=== PATIENT | female | born 1940 | race African-American/Black ===

== ENCOUNTER 2016-03-23 06:01 | Emergency (ER) | payer MEDICARE, OTHER ==
[~2016-03-23] VITALS: Ht 154.9 cm; Wt 76.2 kg
[~2016-03-23 06:01] MED LIST: AMBIEN10 M1 PO; AMBIEN5 MG PO; AMITRIPTYLINE H50 MG PO; CLARITIN10 MG PO; CLONIDINE0.1 MG PO; FELODIPINE ER2.5 MG PO; FERROUS SULFAT150 MG PO; FLUTICASON0.05 MG/A2 NAS; LISINOPRIL40 MG PO; METFORMIN500 MG PO; NEURONTIN100 MG PO; NEURONTIN600 MG PO; OMEPRAZOLE20 MG PO; PERCOCET 325 MG1 TA2 PO; PERCOCET 325 MG1 TA5 PO; PRESERVISION AR1 SGL PO; PRILOSEC20 M2 PO; PROVENTIL0.09 MG/A1 INH; PROVENTIL0.09 MG/AC INH; SOMA350 MG PO; SYNTHROID,LEVOTHROID PO; SYNTHROID0.175 MG PO; WARFARIN SOD5 MG PO; XALATAN 0.005%2.5 ML INTRAOC; XANAX XR0.5 MG PO; XANAX0.5 MG PO; ZOLOFT50 MG PO
[2016-03-23] MEDS ORDERED: NEURONTIN800 MG PO (06:18)
[2016-03-23] MEDS ORDERED: LASIX20 MG PO (06:24)
[2016-03-23] MEDS ORDERED: GUAIFENESIN PO (06:26)
[2016-03-23] MEDS ORDERED: CODEINE PO (06:26)
[2016-03-23] MEDS ORDERED: HIGH POTENCY I134 MG PO (06:27)
[2016-03-23] MEDS ORDERED: ZOLOFT100 MG PO (06:27)
[2016-03-23] MEDS ORDERED: COUMADIN1 M1 PO (06:28)
[2016-03-23 06:41] LABS: BASO % 0.3 % (0.0-1.0); EOS % 0.3 % (1.0-4.0); HEMATOCRIT 44.7 % (37.0-47.0); HEMOGLOBIN 13.9 g/dl (12.0-16.0); LYMPH # 1.9 10*3/uL (1.3-4.4); LYMPH % 25.1 % (27.0-41.0); MEAN CELL VOLUME 79.7 fl (81.0-99.0); MEAN CORPUSCULAR HGB 24.8 pg (27.0-31.0); MEAN CORPUSCULAR HGB CONC 31.1 g/dl (33.0-37.0); MEAN PLATELET VOLUME 11.3 fl (9.6-12.3); MONO # 0.8 10*3/uL (0.1-1.0); MONO % 10.5 % (3.0-9.0); NEUT # 4.9 10*3/uL (2.3-7.9); NEUT % 63.7 % (47.0-73.0); PLATELET COUNT AUTOMATED 211 10*3/uL (130-400); RED BLOOD COUNT 5.61 10*6/uL (4.10-5.10); RED CELL DISTRI WIDTH 16.1 % (0-14.5); WHITE BLOOD COUNT 7.7 10*3/uL (4.8-10.8)
[2016-03-23 06:48] LABS: INTERNATIONAL NORM RATIO 2.5 (2.0-3.5); PROTHROMBIN TIME 26.8 SECONDS (9.0-12.4)
[2016-03-23 06:57] LABS: ALBUMIN 3.2 gm/dl (3.1-4.5); ALKALINE PHOSPHATASE 89 U/L (45-117); BILIRUBIN, TOTAL 0.3 mg/dl (0.2-1.0); BUN 7 mg/dl (7-24); C-REACTIVE PROTEIN 5.55 MG/DL (0-0.3); CARBON DIOXIDE 26 mmol/L (21-32); CHLORIDE 109 mmol/L (98-107); EST GLOM FILT AFRICAN AMERICAN > 60 ml/min; GLUCOSE 133 mg/dL (65-99); MAGNESIUM 1.4 mg/dL (1.5-2.1); POTASSIUM 3.3 mmol/L (3.5-5.1); SGOT/AST 11 IU/L (3-35); SGPT/ALT 13 U/L (12-78); SODIUM 144 mmol/L (136-145); TOTAL PROTEIN 6.8 gm/dL (6.4-8.2)
[2016-03-23 06:59] LABS: TROPONIN I < 0.015 ng/ml (<0.5)
[2016-03-23] MEDS ORDERED: COUMADIN5 M2 PO (07:11)
[2016-04-21] MEDS ORDERED: ATIVAN1 MG PO (16:10)
== END 2016-03-23 09:49 | disposition home or self-care (01) ==
LOC: ED 06:01
PROVIDERS: Emergency Medicine Emergency Medical Services
DX: M54.5 Low back pain (principal); R19.7 Diarrhea, unspecified; R63.0 Anorexia; R63.4 Abnormal weight loss; Z79.01 Long term (current) use of anticoagulants; Z88.0 Allergy status to penicillin; Z79.899 Other long term (current) drug therapy

== ENCOUNTER → 2016-04-01 | Outpatient (CLI) | payer MEDICARE, OTHER ==
[~2016-04-01] MED LIST changes: +ATIVAN1 MG PO; +CODEINE PO; +COUMADIN1 M1 PO; +COUMADIN5 M2 PO; +GUAIFENESIN PO; +HIGH POTENCY I134 MG PO; +LASIX20 MG PO; +NEURONTIN800 MG PO; +ZOLOFT100 MG PO
[2016-04-01 08:04] LABS: BASO % 0.4 % (0.0-1.0); EOS # 0.1 10*3/uL (0.0-0.4); EOS % 1.1 % (1.0-4.0); HEMATOCRIT 44.9 % (37.0-47.0); HEMOGLOBIN 14.1 g/dl (12.0-16.0); LYMPH # 2.5 10*3/uL (1.3-4.4); LYMPH % 34.2 % (27.0-41.0); MEAN CELL VOLUME 79.8 fl (81.0-99.0); MEAN CORPUSCULAR HGB CONC 31.4 g/dl (33.0-37.0); MEAN PLATELET VOLUME 11.2 fl (9.6-12.3); MONO # 0.7 10*3/uL (0.1-1.0); MONO % 9.4 % (3.0-9.0); NEUT # 3.9 10*3/uL (2.3-7.9); NEUT % 54.6 % (47.0-73.0); PLATELET COUNT AUTOMATED 357 10*3/uL (130-400); RED BLOOD COUNT 5.63 10*6/uL (4.10-5.10); RED CELL DISTRI WIDTH 15.4 % (0-14.5); WHITE BLOOD COUNT 7.2 10*3/uL (4.8-10.8)
[2016-04-01 08:32] LABS: ALBUMIN 3.3 gm/dl (3.1-4.5); ALKALINE PHOSPHATASE 87 U/L (45-117); BILIRUBIN, TOTAL 0.2 mg/dl (0.2-1.0); BUN 10 mg/dl (7-24); CARBON DIOXIDE 26 mmol/L (21-32); CHLORIDE 107 mmol/L (98-107); CHOLESTEROL 184 mg/dL (<200); EST GLOM FILT AFRICAN AMERICAN > 60 ml/min; FREE T4 1.38 ng/dl (0.76-1.46); GLUCOSE 117 mg/dL (65-99); HDL CHOLESTEROL 55 mg/dl (40-60); LDL CHOLESTEROL 97 mg/dL (9-159); POTASSIUM 3.6 mmol/L (3.5-5.1); SGOT/AST 12 IU/L (3-35); SGPT/ALT 20 U/L (12-78); SODIUM 144 mmol/L (136-145); TOTAL PROTEIN 7.2 gm/dL (6.4-8.2); TRIGLYCERIDES 159 mg/dl (<150); VLDL CHOLESTEROL 32 mg/dL (6-40)
== END | disposition home or self-care (01) ==
LOC: LAB 07:02
PROVIDERS: Internal Medicine
DX: I10 Essential (primary) hypertension (principal); E03.9 Hypothyroidism, unspecified; I48.91 Unspecified atrial fibrillation

== ENCOUNTER 2016-08-10 06:46 | Inpatient (IN) | payer MEDICARE, OTHER ==
[2016-08-09 20:00] VITALS: BP 159/59
[~2016-08-10] VITALS: Ht 154.9 cm; Wt 66.3 kg
[2016-08-10 06:46] VITALS: BP 67/43
[2016-08-10 07:31] VITALS: BP 122/60
[2016-08-10 07:49] LABS: BASO % 0.4 % (0.0-1.0); EOS % 0.4 % (1.0-4.0); HEMATOCRIT 43.4 % (37.0-47.0); HEMOGLOBIN 13.3 g/dl (12.0-16.0); LYMPH # 1.4 10*3/uL (1.3-4.4); LYMPH % 20.3 % (27.0-41.0); MEAN CELL VOLUME 81.4 fl (81.0-99.0); MEAN CORPUSCULAR HGB CONC 30.6 g/dl (33.0-37.0); MEAN PLATELET VOLUME 10.9 fl (9.6-12.3); MONO # 0.5 10*3/uL (0.1-1.0); MONO % 7.8 % (3.0-9.0); NEUT # 4.7 10*3/uL (2.3-7.9); NEUT % 70.7 % (47.0-73.0); PLATELET COUNT AUTOMATED 253 10*3/uL (130-400); RED BLOOD COUNT 5.33 10*6/uL (4.10-5.10); RED CELL DISTRI WIDTH 14.6 % (0-14.5); WHITE BLOOD COUNT 6.7 10*3/uL (4.8-10.8)
[2016-08-10 08:04] LABS: ALBUMIN 3.2 gm/dl (3.1-4.5); ALKALINE PHOSPHATASE 87 U/L (45-117); BILIRUBIN, TOTAL 0.3 mg/dl (0.2-1.0); BUN 11 mg/dl (7-24); C-REACTIVE PROTEIN 1.85 MG/DL (0-0.3); CARBON DIOXIDE 28 mmol/L (21-32); CHLORIDE 107 mmol/L (98-107); EST GLOM FILT AFRICAN AMERICAN > 60 ml/min; GLUCOSE 155 mg/dL (65-99); MAGNESIUM 1.6 mg/dL (1.5-2.1); POTASSIUM 3.5 mmol/L (3.5-5.1); SGOT/AST 12 IU/L (3-35); SGPT/ALT 14 U/L (12-78); SODIUM 143 mmol/L (136-145); TOTAL PROTEIN 6.5 gm/dL (6.4-8.2); URIC ACID 4.9 mg/dL (2.6-6.0)
[2016-08-10 09:46] VITALS: BP 105/51
[2016-08-10 09:52] VITALS: BP 148/76
[2016-08-10 12:00] VITALS: BP 158/71
[2016-08-10] MEDS ORDERED: CLARITIN10 MG PO (12:51)
[2016-08-10] MEDS ORDERED: FLUTICASON0.05 MG/AC NAS (12:53)
[2016-08-10 16:00] VITALS: BP 159/59
[2016-08-10] MEDS ORDERED: XANAX XR0.5 MG PO (16:22)
[2016-08-10 18:17] LABS: INTERNATIONAL NORM RATIO 2.9 (2.0-3.5); PROTHROMBIN TIME 32.6 SECONDS (9.0-12.4)
[2016-08-11] VITALS: BP 154/62
[2016-08-11 06:51] LABS: BASO % 0.1 % (0.0-1.0); HEMATOCRIT 42.4 % (37.0-47.0); HEMOGLOBIN 13.3 g/dl (12.0-16.0); LYMPH # 1.3 10*3/uL (1.3-4.4); LYMPH % 12.8 % (27.0-41.0); MEAN CELL VOLUME 80.3 fl (81.0-99.0); MEAN CORPUSCULAR HGB 25.2 pg (27.0-31.0); MEAN CORPUSCULAR HGB CONC 31.4 g/dl (33.0-37.0); MEAN PLATELET VOLUME 11.7 fl (9.6-12.3); MONO # 0.6 10*3/uL (0.1-1.0); MONO % 5.5 % (3.0-9.0); NEUT # 8.5 10*3/uL (2.3-7.9); NEUT % 81.3 % (47.0-73.0); PLATELET COUNT AUTOMATED 266 10*3/uL (130-400); RED BLOOD COUNT 5.28 10*6/uL (4.10-5.10); RED CELL DISTRI WIDTH 14.5 % (0-14.5); WHITE BLOOD COUNT 10.4 10*3/uL (4.8-10.8)
[2016-08-11 07:05] LABS: ALBUMIN 2.8 gm/dl (3.1-4.5); ALKALINE PHOSPHATASE 83 U/L (45-117); BILIRUBIN, TOTAL 0.2 mg/dl (0.2-1.0); BUN 11 mg/dl (7-24); CARBON DIOXIDE 27 mmol/L (21-32); CHLORIDE 106 mmol/L (98-107); CHOLESTEROL 210 mg/dL (<200); EST GLOM FILT AFRICAN AMERICAN > 60 ml/min; GLUCOSE 196 mg/dL (65-99); MAGNESIUM 1.8 mg/dL (1.5-2.1); PHOSPHOROUS 3.2 mg/dL (2.5-4.9); POTASSIUM 3.5 mmol/L (3.5-5.1); SGOT/AST 7 IU/L (3-35); SGPT/ALT 14 U/L (12-78); SODIUM 142 mmol/L (136-145); TOTAL PROTEIN 6.3 gm/dL (6.4-8.2); TRIGLYCERIDES 91 mg/dl (<150); VLDL CHOLESTEROL 18 mg/dL (6-40)
[2016-08-11 07:10] LABS: HEMOGLOBIN A1c 7.6 % (4.8-5.6)
[2016-08-11 07:11] LABS: HDL CHOLESTEROL 89 mg/dl (40-60); LDL CHOLESTEROL 103 mg/dL (9-159); THYROID STIM HORMONE (HS) 0.143 uIU/ml (0.358-4.75)
[2016-08-11 07:50] LABS: FOLIC ACID 7.67 ng/mL (>5.38)
[2016-08-11 08:00] VITALS: BP 180/72
[2016-08-11 08:04] LABS: VITAMIN D, 25-HYDROXY 9.3 ng/mL (30-100)
[2016-08-11 12:00] VITALS: BP 148/65
[2016-08-11] MEDS ORDERED: DOXYCYCLINE100 M3 PO (15:26)
[2016-08-11] MEDS ORDERED: AMLODIPINE BESYL5 MG PO (15:26)
[2016-08-11 16:00] VITALS: BP 135/50
== END 2016-08-11 18:55 | disposition home or self-care (01) | DRG 558 ==
LOC: ED 06:46 → EDHOLD 11:22 → 5E 11:22
PROVIDERS: Emergency Medicine; Hospitalist; Orthopaedic Surgery
DX: M65.849 Other synovitis and tenosynovitis, unspecified hand (principal); E03.9 Hypothyroidism, unspecified; F41.9 Anxiety disorder, unspecified; M19.90 Unspecified osteoarthritis, unspecified site; H40.9 Unspecified glaucoma; J32.9 Chronic sinusitis, unspecified; Z87.891 Personal history of nicotine dependence; Z88.0 Allergy status to penicillin; Z79.51 Long term (current) use of inhaled steroids; Z79.899 Other long term (current) drug therapy; Z79.01 Long term (current) use of anticoagulants; Z79.84 Long term (current) use of oral hypoglycemic drugs

== ENCOUNTER → 2017-01-15 | Outpatient (CLI) | payer MEDICARE, OTHER ==
[~2017-01-15] MED LIST changes: +AMLODIPINE BESYL5 MG PO; +DOXYCYCLINE100 M3 PO; +FLUTICASON0.05 MG/AC NAS
== END | disposition home or self-care (01) ==
LOC: RAD 03:15
DX: M17.12 Unilateral primary osteoarthritis, left knee (principal); M11.262 Other chondrocalcinosis, left knee; J43.2 Centrilobular emphysema

== ENCOUNTER → 2017-01-22 | Day surgery (SDC) | payer MEDICARE, OTHER ==
[~2017-01-22] VITALS: Ht 154.9 cm; Wt 65.3 kg
--- NOTE | ~2017-01-22 | O ---
[place], [place] OPERATIVE NOTE NAME: STACI MCMANUS UNIT #: [id number] ROOM: DOCTOR: JENN CHOPRA MD BIRTHDATE: [birth year] DOS: The patient has also solid food dysphagia, weight loss, presenting with difficulty swallowing her pills. ALLERGIES: PENICILLIN. FAMILY HISTORY: Noncontributory. PAST SURGICAL HISTORY: Cholecystectomy, rotator cuff, bladder repair. PAST MEDICAL HISTORY: Hypertension, diabetes, hypothyroidism, factor V deficiency. SOCIAL HISTORY: Smoker, nonalcohol consumer. PROCEDURE: Todays' procedure part of investigation is panendoscopy plus biopsy plus balloon dilation of esophagus. PREMEDICATION: Versed and Diprivan. SCOPE: Olympus forward-viewing gastroscope Q10 video. REPORT: After putting the patient in the left lateral position and after application of lubricant to the scope, the scope was introduced. Thereafter, under direct visualization, I advanced through the length of the esophagus without difficulty. Cervical esophageal benign stricture was dilated with a balloon to size 19. At this stage, gastric pouch was inspected, multiple superficial ulcerations in the lesser curvature mid gastric pouch area was noticed. Photographed, biopsied from margin of 1 was obtained. Duodenal bulb, second and third part within normal limits. The patient extubated, tolerated procedure well. IMPRESSION: Multiple superficial gastric ulcers, gastritis, esophageal benign stricture, status post balloon dilation of upper esophagus to size 19. PLAN AND DISCUSSION: Re-assessment clinically in office to see if she has any improvement. Thank you very much indeed. [place], [place] OPERATIVE NOTE NAME: STACI MCMANUS UNIT #: [id number] ROOM: DOCTOR: JENN CHOPRA MD BIRTHDATE: [birth year] JENN CHOPRA MD CM:OPRECORD:OPERATIVE NOTE [id number] JENN CHOPRA MD 01/22/17 1516 interface
[2017-01-22 14:20] VITALS: BP 160/60
[2017-01-22 14:45] VITALS: BP 136/52
[2017-01-22 15:00] VITALS: BP 144/58
[2017-01-22 15:15] VITALS: BP 150/62
== END | disposition home or self-care (01) ==
LOC: SDC 01-18 14:00
DX: K29.50 Unspecified chronic gastritis without bleeding (principal); K25.9 Gastric ulcer, unspecified as acute or chronic, without hemorrhage or perforation; K22.2 Esophageal obstruction; Z88.8 Allergy status to other drugs, medicaments and biological substances; Z90.49 Acquired absence of other specified parts of digestive tract; Z98.890 Other specified postprocedural states; I10 Essential (primary) hypertension; E11.9 Type 2 diabetes mellitus without complications; E03.9 Hypothyroidism, unspecified; F17.210 Nicotine dependence, cigarettes, uncomplicated; J44.9 Chronic obstructive pulmonary disease, unspecified; E11.39 Type 2 diabetes mellitus with other diabetic ophthalmic complication; H40.9 Unspecified glaucoma; F41.9 Anxiety disorder, unspecified; Z83.3 Family history of diabetes mellitus; Z82.49 Family history of ischemic heart disease and other diseases of the circulatory system; Z88.0 Allergy status to penicillin

== ENCOUNTER 2017-02-09 17:49 | Emergency (ER) | payer MEDICARE, OTHER ==
[~2017-02-09] VITALS: Ht 154.9 cm; Wt 68.9 kg
[~2017-02-09 17:49] MED LIST changes: -MEDROL DOSEPAK4 MG PO; -NAPROSYN500 MG PO
[2017-02-09] MEDS ORDERED: MEDROL DOSEPAK4 MG PO (18:29)
[2017-02-09] MEDS ORDERED: NAPROSYN500 MG PO (18:29)
== END 2017-02-09 18:43 | disposition home or self-care (01) ==
LOC: ED 17:49
DX: M19.031 Primary osteoarthritis, right wrist (principal); Z87.891 Personal history of nicotine dependence; Z98.890 Other specified postprocedural states; Z79.899 Other long term (current) drug therapy; Z79.01 Long term (current) use of anticoagulants; Z88.0 Allergy status to penicillin

== ENCOUNTER → 2017-02-09 | Outpatient (CLI) | payer MEDICARE, OTHER ==
[~2017-02-09] MED LIST changes: +MEDROL DOSEPAK4 MG PO; +NAPROSYN500 MG PO
== END | disposition home or self-care (01) ==
LOC: MAMMO 03:45
DX: Z12.31 Encounter for screening mammogram for malignant neoplasm of breast (principal)

== ENCOUNTER → 2017-03-17 | Day surgery (SDC) | payer MEDICARE, OTHER ==
[~2017-03-17] VITALS: Ht 154.9 cm; Wt 65.3 kg
[~2017-03-17] MED LIST changes: +MEDROL DOSEPAK4 MG PO; +NAPROSYN500 MG PO; +SYNTHROID,LEV112 MCG PO
--- NOTE | ~2017-03-17 | O ---
[place], [place] OPERATIVE NOTE NAME: CONCHA MCMANUSTA Gary UNIT #: [id number] ROOM: DOCTOR: JENN CHOPRA MD BIRTHDATE: [birth year] DOS: 03/17/2017 HISTORY OF PRESENT ILLNESS: A 76-year-old patient with chief complaint of change in bowel habit, undergoing investigation. ALLERGIES: PENICILLIN. FAMILY HISTORY: Noncontributory. PAST MEDICAL HISTORY: Hypertension, diabetes, hypothyroidism, and factor V deficiency. On anticoagulant warfarin. PAST SURGICAL HISTORY: Cholecystectomy and rotator cuff and ankle repair. SOCIAL HISTORY: Smoker, 1 pack; nonalcohol consumer. PROCEDURE: Today's procedure part of investigation is colonoscopy with 3 polypectomies with a snare. PREMEDICATION: Versed and Diprivan. SCOPE: Olympus folding colonoscope 10L video. REPORT: After putting the patient in left lateral position and application of lubricant to the scope, the scope was introduced. Thereafter, under direct visualization, advanced through the length of colon without difficulty. Polypoid lesions x 3 in hepatic flexure, done with a snare. Samples recovered. Base of the cecum explored, appendiceal orifice was identified. Ileocecal valve was defined. The patient extubated, tolerated the procedure well. IMPRESSION: Three polypoid lesions in hepatic flexure, status post snare polypectomy. PLAN AND DISCUSSION: High-fiber diet. Activity ad susy. Follow up as outpatient. We are going to ask her to stay off the warfarin for 1 week. [place], [place] OPERATIVE NOTE NAME: YONATHAN,STACI Gary UNIT #: [id number] ROOM: DOCTOR: JENN CHORPA MD BIRTHDATE: [birth year] JENN CHOPRA MD CM:OPRECORD:OPERATIVE NOTE 6 [id number] JENN CHOPRA MD 03/17/17 1146 interface
[2017-03-17 07:40] VITALS: BP 150/86
[2017-03-17 09:09] VITALS: BP 133/67
[2017-03-17 09:24] VITALS: BP 123/78
[2017-03-17 09:39] VITALS: BP 142/86
== END | disposition home or self-care (01) ==
LOC: SDC 03-15 10:15
DX: D12.3 Benign neoplasm of transverse colon (principal); K63.5 Polyp of colon; Z88.0 Allergy status to penicillin; I10 Essential (primary) hypertension; E11.9 Type 2 diabetes mellitus without complications; E03.9 Hypothyroidism, unspecified; Z79.01 Long term (current) use of anticoagulants; Z90.49 Acquired absence of other specified parts of digestive tract; F17.210 Nicotine dependence, cigarettes, uncomplicated; Z98.890 Other specified postprocedural states

== ENCOUNTER 2017-05-17 14:48 | Emergency (ER) | payer MEDICARE, OTHER ==
[~2017-05-17] VITALS: Ht 154.9 cm; Wt 65.3 kg
[2017-05-17] MEDS ORDERED: NORCO 5-325 TA1 EACH PO (15:13)
== END 2017-05-17 15:14 | disposition home or self-care (01) ==
LOC: ED 14:48
DX: M25.512 Pain in left shoulder (principal); F17.200 Nicotine dependence, unspecified, uncomplicated; Z98.890 Other specified postprocedural states; Z79.01 Long term (current) use of anticoagulants; Z79.899 Other long term (current) drug therapy

== ENCOUNTER → 2017-06-02 | Outpatient (CLI) | payer MEDICARE, OTHER ==
[~2017-06-02] MED LIST changes: +NORCO 5-325 TA1 EACH PO
[2017-06-02 16:38] LABS: BASO % 0.6 % (0.0-1.0); EOS # 0.1 10*3/uL (0.0-0.4); EOS % 1.3 % (1.0-4.0); HEMATOCRIT 40.7 % (37.0-47.0); LYMPH # 2.9 10*3/uL (1.3-4.4); LYMPH % 40.3 % (27.0-41.0); MEAN CELL VOLUME 81.1 fl (81.0-99.0); MEAN CORPUSCULAR HGB 25.9 pg (27.0-31.0); MEAN CORPUSCULAR HGB CONC 31.9 g/dl (33.0-37.0); MEAN PLATELET VOLUME 11.4 fl (9.6-12.3); MONO # 0.7 10*3/uL (0.1-1.0); MONO % 9.7 % (3.0-9.0); NEUT # 3.5 10*3/uL (2.3-7.9); NEUT % 48.1 % (47.0-73.0); PLATELET COUNT AUTOMATED 265 10*3/uL (130-400); RED BLOOD COUNT 5.02 10*6/uL (4.10-5.10); RED CELL DISTRI WIDTH 15.1 % (0-14.5); WHITE BLOOD COUNT 7.2 10*3/uL (4.8-10.8)
[2017-06-02 17:26] LABS: ALBUMIN 3.6 gm/dl (3.1-4.5); BUN 19 mg/dl (7-24); CHLORIDE 103 mmol/L (98-107); CHOLESTEROL 186 mg/dL (<200); POTASSIUM 3.8 mmol/L (3.5-5.1); SGOT/AST 10 IU/L (3-35); SGPT/ALT 12 U/L (12-78); SODIUM 142 mmol/L (136-145); TOTAL PROTEIN 6.8 gm/dL (6.4-8.2); TRIGLYCERIDES 204 mg/dl (<150); VLDL CHOLESTEROL 41 mg/dL (6-40)
[2017-06-02 17:27] LABS: ALKALINE PHOSPHATASE 91 U/L (45-117); HDL CHOLESTEROL 72 mg/dl (40-60); LDL CHOLESTEROL 73 mg/dL (9-159)
[2017-06-02 17:31] LABS: FREE T4 0.94 ng/dl (0.76-1.46)
== END | disposition home or self-care (01) ==
LOC: LAB 15:03
PROVIDERS: Internal Medicine
DX: E03.9 Hypothyroidism, unspecified (principal); I10 Essential (primary) hypertension; M62.830 Muscle spasm of back; E55.9 Vitamin D deficiency, unspecified

== ENCOUNTER 2018-01-03 14:38 | Emergency (ER) | payer MEDICARE, OTHER ==
[~2018-01-03] VITALS: Ht 154.9 cm; Wt 65.3 kg
[2018-01-03 15:07] LABS: BASO % 0.3 % (0.0-1.0); EOS % 0.5 % (1.0-4.0); HEMATOCRIT 39.9 % (37.0-47.0); HEMOGLOBIN 12.6 g/dl (12.0-16.0); LYMPH # 2.3 10*3/uL (1.3-4.4); LYMPH % 31.2 % (27.0-41.0); MEAN CELL VOLUME 80.3 fl (81.0-99.0); MEAN CORPUSCULAR HGB 25.4 pg (27.0-31.0); MEAN CORPUSCULAR HGB CONC 31.6 g/dl (33.0-37.0); MEAN PLATELET VOLUME 11.3 fl (9.6-12.3); MONO # 0.7 10*3/uL (0.1-1.0); MONO % 9.5 % (3.0-9.0); NEUT # 4.2 10*3/uL (2.3-7.9); NEUT % 58.2 % (47.0-73.0); PLATELET COUNT AUTOMATED 248 10*3/uL (130-400); RED BLOOD COUNT 4.97 10*6/uL (4.10-5.10); RED CELL DISTRI WIDTH 16.4 % (0-14.5); WHITE BLOOD COUNT 7.3 10*3/uL (4.8-10.8)
[2018-01-03 15:19] LABS: BUN 15 mg/dl (7-24); CHLORIDE 107 mmol/L (98-107); CREATININE 0.81 mg/dL (0.55-1.02); POTASSIUM 3.4 mmol/L (3.5-5.1); SODIUM 143 mmol/L (136-145)
[2018-01-03 15:20] LABS: INTERNATIONAL NORM RATIO 2.7 (2.0-3.5)
== END 2018-01-03 16:04 | disposition home or self-care (01) ==
LOC: ED 14:38
PROVIDERS: Emergency Medicine
DX: R60.0 Localized edema (principal); M79.604 Pain in right leg; Z87.891 Personal history of nicotine dependence; E03.9 Hypothyroidism, unspecified; Z79.01 Long term (current) use of anticoagulants; Z79.899 Other long term (current) drug therapy; Z88.0 Allergy status to penicillin

== ENCOUNTER → 2018-05-12 | Outpatient (CLI) | payer MEDICARE, OTHER ==
[~2018-05-12] MED LIST changes: +[UNRECOGNIZED DRUG - OTHER] INH
== END | disposition home or self-care (01) ==
LOC: CANPRECLI → CARD 05-04 09:30
DX: I65.23 Occlusion and stenosis of bilateral carotid arteries (principal); R01.1 Cardiac murmur, unspecified; I10 Essential (primary) hypertension; E11.9 Type 2 diabetes mellitus without complications; F17.200 Nicotine dependence, unspecified, uncomplicated

== ENCOUNTER → 2018-11-09 | Day surgery (SDC) | payer MEDICARE, OTHER ==
[~2018-11-09] VITALS: Ht 154.9 cm; Wt 63.5 kg
[~2018-11-09] MED LIST changes: +COZAAR100 MG PO
--- NOTE | ~2018-11-09 | OP ---
[place], [place] OUTPATIENT NOTE NAME: STACI MCMANUS [facility] #: [id number] UNIT #: [id number] ROOM: DOCTOR: ISAIAS CRAWFORD MD BIRTHDATE: [birth year] DATE: 11/09/18 PREOPERATIVE DIAGNOSIS: Cataract, right eye. POSTOPERATIVE DIAGNOSIS: Cataract, right eye. OPERATION: Extracapsular cataract extraction by phacoemulsification with posterior chamber intraocular lens implantation, right eye. ANESTHESIA: Monitored standby. LENS INFORMATION: Intraocular lens, Julian AU00T0, 19.0 diopters. OPERATIVE FINDINGS AND PROCEDURE: 2% Xylocaine topical anesthetic gel was applied to the eye in the preop area. The patient was taken to the operating room and prepped and draped in the standard fashion for sterile intraocular surgery. A time out procedure was performed verifying correct patient, correct site and corrects lens with Margareth Crawford M.D. The operating microscope was swung into position and the lid speculum was inserted. Using a 2.4 mm keratome, a temporal self-sealing clear corneal cataract incision was made. A Malyugin ring was inserted into the anterior chamber to expand the pupil. The ring was found to be a defect and it was removed and a second ring was inserted to expand the pupil to facilitate the surgery. Using a pre-bent 25 gauge cystotome needle, a standard continuous curvilinear capsulorrhexis was performed. The anterior capsule was removed with forceps. The lens nucleus was hydrodissected and phacoemulsified in the posterior chamber. Cortical material was removed with the irrigation aspiration hand piece and the posterior capsule was then polished with a curet under irrigation. The posterior chamber and capsular bag were filled with viscoelastic. A posterior chamber intraocular lens manufactured by: Julian, AU00T0, 19.0 diopters in strength were then inserted into the posterior chamber and within the capsular bag using the lens cartridge and injector system. Viscoelastic was removed using the irrigation aspiration handpiece. The anterior chamber was filled with balanced salt solution through the paracentesis. Both the paracentesis site and cataract incisions were hydrated with BSS and verified to be water-tight and self-sealing. Cefuroxime 1 mg/0.1 mL was injected into the anterior chamber through the paracentesis site. The incision checked to be water-tight using a Weck-Molly sponge. The integrity of the cataract wound and ocular tension were checked. Lid speculum and drapes were removed. The patient was transferred from the operating room to the recovery room in satisfactory condition. [place], [place] OUTPATIENT NOTE NAME: STACI MCMANUS Gary UNIT #: [id number] ROOM: DOCTOR: ISAIAS CRAWFORD MD BIRTHDATE: [birth year] ISAIAS CRAWFORD MD CM:OUTNOTE:OUTPATIENT NOTE [id number] ISAIAS CRAWFORD MD 11/17/182003 OPAL NAVARRO MIS.LLR
--- NOTE | ~2018-11-09 | O ---
[place], [place] OPERATIVE NOTE [id number] UNIT #: [id number] ROOM: DOCTOR: ISAIAS CRAWFORD MD BIRTHDATE: [birth year] DATE: 11/09/18 PREOPERATIVE DIAGNOSIS: Cataract, right eye. POSTOPERATIVE DIAGNOSIS: Cataract, right eye. OPERATION: Extracapsular cataract extraction by phacoemulsification with posterior chamber intraocular lens implantation, right eye. ANESTHESIA: Monitored standby. LENS INFORMATION: Intraocular lens, Julian AU00T0, 19.0 diopters. OPERATIVE FINDINGS AND PROCEDURE: 2% Xylocaine topical anesthetic gel was applied to the eye in the preop area. The patient was taken to the operating room and prepped and draped in the standard fashion for sterile intraocular surgery. A time out procedure was performed verifying correct patient, correct site and corrects lens with Margareth Crawford M.D. The operating microscope was swung into position and the lid speculum was inserted. Using a 2.4 mm keratome, a temporal self-sealing clear corneal cataract incision was made. A Malyugin ring was inserted into the anterior chamber to expand the pupil. The ring was found to be a defect and it was removed and a second ring was inserted to expand the pupil to facilitate the surgery. Using a pre-bent 25 gauge cystotome needle, a standard continuous curvilinear capsulorrhexis was performed. The anterior capsule was removed with forceps. The lens nucleus was hydrodissected and phacoemulsified in the posterior chamber. Cortical material was removed with the irrigation aspiration hand piece and the posterior capsule was then polished with a curet under irrigation. The posterior chamber and capsular bag were filled with viscoelastic. A posterior chamber intraocular lens manufactured by: Julian, AU00T0, 19.0 diopters in strength were then inserted into the posterior chamber and within the capsular bag using the lens cartridge and injector system. Viscoelastic was removed using the irrigation aspiration handpiece. The anterior chamber was filled with balanced salt solution through the paracentesis. Both the paracentesis site and cataract incisions were hydrated with BSS and verified to be water-tight and self-sealing. Cefuroxime 1 mg/0.1 mL was injected into the anterior chamber through the paracentesis site. The incision checked to be water-tight using a Weck-Molly sponge. The integrity of the cataract wound and ocular tension were checked. Lid speculum and drapes were removed. The patient was transferred from the operating room to the recovery room in satisfactory condition. [place], [place] OPERATIVE NOTE NAME: STACI MCMANUS Gary UNIT #: [id number] ROOM: DOCTOR: ISAIAS CRAWFORD MD BIRTHDATE: [birth year] ISAIAS CRAWFORD MD CM:OPRECORD:OPERATIVE NOTE [id number] ISAIAS CRAWFORD MD 11/17/182003 OPAL NAVARRO MIS.R
[2018-11-09 07:30] VITALS: BP 132/67
[2018-11-09 09:10] VITALS: BP 170/73
[2018-11-09 09:25] VITALS: BP 159/64
[2018-11-09 09:38] VITALS: BP 156/64
== END | disposition home or self-care (01) ==
LOC: SDC 11-03 09:30
DX: H25.811 Combined forms of age-related cataract, right eye (principal); I10 Essential (primary) hypertension; J44.9 Chronic obstructive pulmonary disease, unspecified; K21.9 Gastro-esophageal reflux disease without esophagitis; F41.9 Anxiety disorder, unspecified; E11.9 Type 2 diabetes mellitus without complications; Z98.890 Other specified postprocedural states; Z79.899 Other long term (current) drug therapy; Z79.84 Long term (current) use of oral hypoglycemic drugs; Z82.3 Family history of stroke; Z83.3 Family history of diabetes mellitus; Z82.49 Family history of ischemic heart disease and other diseases of the circulatory system

== ENCOUNTER → 2018-11-18 | Outpatient (CLI) | payer MEDICARE, OTHER ==
[2018-11-18 10:24] LABS: HEMATOCRIT 42.4 % (37.0-47.0); MEAN CELL VOLUME 80.8 fl (81.0-99.0); MEAN CORPUSCULAR HGB 24.8 pg (27.0-31.0); MEAN CORPUSCULAR HGB CONC 30.7 g/dl (33.0-37.0); MEAN PLATELET VOLUME 11.7 fl (9.6-12.3); RED BLOOD COUNT 5.25 10*6/uL (4.10-5.10); RED CELL DISTRI WIDTH 15.9 % (0-14.5); WHITE BLOOD COUNT 5.8 10*3/uL (4.8-10.8)
[2018-11-18 11:08] LABS: ALBUMIN 3.7 gm/dl (3.1-4.5); BUN 19 mg/dl (7-24); CHLORIDE 108 mmol/L (98-107); CHOLESTEROL 196 mg/dL (<200); CREATININE 0.88 mg/dL (0.55-1.02); POTASSIUM 3.6 mmol/L (3.5-5.1); SGOT/AST 9 IU/L (3-35); SGPT/ALT 15 U/L (12-78); SODIUM 143 mmol/L (136-145); TRIGLYCERIDES 148 mg/dl (<150); VLDL CHOLESTEROL 30 mg/dL (6-40)
[2018-11-18 11:15] LABS: ALKALINE PHOSPHATASE 73 U/L (45-117); FREE T4 1.47 ng/dl (0.76-1.46); HDL CHOLESTEROL 66 mg/dl (40-60); LDL CHOLESTEROL 100 mg/dL (9-159); THYROID STIM HORMONE (HS) 0.237 uIU/ml (0.358-4.75)
== END | disposition home or self-care (01) ==
LOC: LAB 00:51
PROVIDERS: Internal Medicine
DX: E11.42 Type 2 diabetes mellitus with diabetic polyneuropathy (principal); E03.9 Hypothyroidism, unspecified; E78.2 Mixed hyperlipidemia; E55.9 Vitamin D deficiency, unspecified; I10 Essential (primary) hypertension

== ENCOUNTER 2019-05-07 14:04 | Emergency (ER) | payer MEDICARE, OTHER ==
[~2019-05-07] VITALS: Ht 154.9 cm; Wt 63.5 kg
[2019-05-07] MEDS ORDERED: CEPHALEXIN500 M1 PO (14:51)
[2019-05-11] MEDS ORDERED: ASPIRIN CHEWABL81 MG PO (10:11)
[2019-05-11] MEDS ORDERED: PLAVIX75 M1 PO (10:12)
== END 2019-05-07 14:56 | disposition home or self-care (01) ==
LOC: ED 14:04
DX: L60.0 Ingrowing nail (principal); L08.9 Local infection of the skin and subcutaneous tissue, unspecified; I10 Essential (primary) hypertension; J44.9 Chronic obstructive pulmonary disease, unspecified; E11.9 Type 2 diabetes mellitus without complications; E03.9 Hypothyroidism, unspecified; F41.9 Anxiety disorder, unspecified; Z88.0 Allergy status to penicillin; Z79.899 Other long term (current) drug therapy; Z79.84 Long term (current) use of oral hypoglycemic drugs; Z79.01 Long term (current) use of anticoagulants

== ENCOUNTER → 2020-06-03 | Outpatient (CLI) | payer MEDICARE, OTHER ==
[~2020-06-03] MED LIST changes: +ASPIRIN CHEWABL81 MG PO; +CEPHALEXIN500 M1 PO; +PLAVIX75 M1 PO
== END | disposition home or self-care (01) ==
LOC: CT 12:42
PROVIDERS: ATTEND Physician Assistant
DX: R20.0 Anesthesia of skin (principal)

== ENCOUNTER → 2020-08-13 | Outpatient (CLI) | payer MEDICARE, OTHER ==
[2020-08-13 12:26] LABS: HEMATOCRIT 34.4 % (37.0-47.0); MEAN CELL VOLUME 74.3 fl (81.0-99.0); MEAN CORPUSCULAR HGB 22.2 pg (27.0-31.0); MEAN CORPUSCULAR HGB CONC 29.9 g/dl (33.0-37.0); RED BLOOD COUNT 4.63 10*6/uL (4.10-5.10); RED CELL DISTRI WIDTH 18.3 % (0-14.5); WHITE BLOOD COUNT 5.8 10*3/uL (4.8-10.8)
[2020-08-13 12:45] LABS: ALBUMIN 3.7 gm/dl (3.1-4.5); BUN 18 mg/dl (7-24); CHLORIDE 108 mmol/L (98-107); CHOLESTEROL 213 mg/dL (<200); CREATININE 0.64 mg/dL (0.55-1.02); LDL CHOLESTEROL 103 mg/dL (9-159); POTASSIUM 3.4 mmol/L (3.5-5.1); SGOT/AST 9 IU/L (3-35); SGPT/ALT 15 U/L (12-78); SODIUM 142 mmol/L (136-145); TOTAL PROTEIN 7.4 gm/dL (6.4-8.2); TRIGLYCERIDES 159 mg/dl (<150)
[2020-08-13 12:53] LABS: ALKALINE PHOSPHATASE 76 U/L (45-117)
== END | disposition home or self-care (01) ==
LOC: LAB 11:29
PROVIDERS: ATTEND Physician Assistant
DX: E11.42 Type 2 diabetes mellitus with diabetic polyneuropathy (principal); H92.03 Otalgia, bilateral; I48.0 Paroxysmal atrial fibrillation; I10 Essential (primary) hypertension; I70.25 Atherosclerosis of native arteries of other extremities with ulceration; Z89.412 Acquired absence of left great toe; F51.01 Primary insomnia; R20.0 Anesthesia of skin

== ENCOUNTER → 2020-08-26 | Outpatient (CLI) | payer MEDICARE, OTHER | END | disposition home or self-care (01) | LOC: MAMMO 09:30 | PROVIDERS: ATTEND Physician Assistant | DX: Z12.31 Encounter for screening mammogram for malignant neoplasm of breast (principal) ==

== ENCOUNTER → 2020-09-24 | Outpatient (CLI) | payer MEDICARE, OTHER | END | disposition home or self-care (01) | LOC: MAMMO 01:48 | PROVIDERS: ATTEND Physician Assistant | DX: R92.8 Other abnormal and inconclusive findings on diagnostic imaging of breast (principal) ==

== ENCOUNTER → 2020-11-28 | Outpatient (CLI) | payer MEDICARE, OTHER | END | disposition home or self-care (01) | LOC: US 00:17 | PROVIDERS: ATTEND Physician Assistant | DX: K91.5 Postcholecystectomy syndrome (principal); Z90.49 Acquired absence of other specified parts of digestive tract ==

== ENCOUNTER → 2021-06-25 | Outpatient (CLI) | payer MEDICARE, OTHER | END | disposition home or self-care (01) | LOC: US 10:10 | PROVIDERS: ATTEND Physician Assistant | DX: R10.31 Right lower quadrant pain (principal); I10 Essential (primary) hypertension; M15.8 Other polyosteoarthritis; E11.42 Type 2 diabetes mellitus with diabetic polyneuropathy; I48.0 Paroxysmal atrial fibrillation ==

== ENCOUNTER 2021-09-29 17:24 | Emergency (ER) | payer MEDICARE, OTHER ==
[~2021-09-29] VITALS: Ht 154.9 cm; Wt 57.6 kg
[2021-09-29 18:00] LABS: BASO % 0.4 % (0.0-1.0); EOS # 0.1 10*3/uL (0.0-0.4); EOS % 1.6 % (1.0-4.0); HEMATOCRIT 36.2 % (37.0-47.0); LYMPH % 39.1 % (27.0-41.0); MEAN CELL VOLUME 74.8 fl (81.0-99.0); MEAN CORPUSCULAR HGB 22.5 pg (27.0-31.0); MEAN CORPUSCULAR HGB CONC 30.1 g/dl (33.0-37.0); MONO # 0.5 10*3/uL (0.1-1.0); NEUT # 2.5 10*3/uL (2.3-7.9); NEUT % 48.9 % (47.0-73.0); PLATELET COUNT AUTOMATED 283 10*3/uL (130-400); RED BLOOD COUNT 4.84 10*6/uL (4.10-5.10); RED CELL DISTRI WIDTH 17.9 % (0-14.5); WHITE BLOOD COUNT 5.1 10*3/uL (4.8-10.8)
[2021-09-29 18:11] LABS: ACT PARTIAL THROMBO TIME 34.9 SECONDS (20.0-32.1); INTERNATIONAL NORM RATIO 2.3 (2.0-3.5)
[2021-09-29 18:17] LABS: ALKALINE PHOSPHATASE 77 U/L (45-117); BUN 19 mg/dl (7-24); CHLORIDE 111 mmol/L (98-107); CREATININE 0.74 mg/dL (0.55-1.02); LIPASE 334 U/L (73-393); POTASSIUM 3.2 mmol/L (3.5-5.1); SGOT/AST 13 IU/L (3-35); SGPT/ALT 16 U/L (12-78); SODIUM 140 mmol/L (136-145); TOTAL PROTEIN 6.4 gm/dL (6.4-8.2)
[2021-09-29] MEDS ORDERED: CARAFATE1 G1 PO (21:26)
== END 2021-09-29 21:25 | disposition home or self-care (01) ==
LOC: ED 17:24
PROVIDERS: Emergency Medicine
DX: R10.13 Epigastric pain (principal); Z87.891 Personal history of nicotine dependence; Z79.899 Other long term (current) drug therapy; Z79.01 Long term (current) use of anticoagulants; Z79.82 Long term (current) use of aspirin; Z88.0 Allergy status to penicillin

== ENCOUNTER → 2022-01-12 | Outpatient (CLI) | payer MEDICARE, OTHER ==
[~2022-01-12] MED LIST changes: +CARAFATE1 G1 PO
[2022-01-12 11:08] LABS: CREATININE 0.65 mg/dL (0.55-1.02)
== END | disposition home or self-care (01) ==
LOC: CARD 09:00 → LAB 09:48 → CARD 09:48
PROVIDERS: ATTEND Physician Assistant
DX: R00.2 Palpitations (principal)

== ENCOUNTER → 2022-01-20 | Outpatient (CLI) | payer MEDICARE, OTHER | END | disposition home or self-care (01) | LOC: LAB 01-16 11:00 → CT 01-16 11:00 | PROVIDERS: ATTEND Physician Assistant | DX: I10 Essential (primary) hypertension (principal); I77.4 Celiac artery compression syndrome; I77.1 Stricture of artery ==

== ENCOUNTER → 2022-01-27 | Outpatient (CLI) | payer MEDICARE, OTHER | END | disposition home or self-care (01) | LOC: MAMMO 01:18 | PROVIDERS: ATTEND Physician Assistant | DX: Z12.31 Encounter for screening mammogram for malignant neoplasm of breast (principal); N64.89 Other specified disorders of breast ==

== ENCOUNTER → 2023-07-06 | Outpatient (CLI) | payer MEDICARE, OTHER ==
[~2023-07-06] MED LIST changes: +LEVOFLOXACIN750 M2 PO; +PREDNISONE20 M1 PO
== END | disposition home or self-care (01) ==
LOC: MAMMO 06-30 02:16
PROVIDERS: ATTEND Physician Assistant
DX: Z12.31 Encounter for screening mammogram for malignant neoplasm of breast (principal)

== ENCOUNTER 2023-08-13 18:31 | Emergency (ER) | payer MEDICARE, OTHER ==
[~2023-08-13] VITALS: Ht 154.9 cm; Wt 59.0 kg
[2023-08-13] MEDS ORDERED: SODIUM CHLORIDE 0.9% 1,000 ML IV ONE (19:15)
[2023-08-13] MEDS ORDERED: IOHEXOL 300 MG/ML 100 ML VIAL IV ONE (19:20)
[2023-08-13 19:35] LABS: BASO % 0.6 % (0.0-1.0); EOS % 0.6 % (1.0-4.0); HEMATOCRIT 43.3 % (37.0-47.0); LYMPH # 1.8 10*3/uL (1.3-4.4); LYMPH % 36.9 % (27.0-41.0); MEAN CORPUSCULAR HGB 24.4 pg (27.0-31.0); MEAN CORPUSCULAR HGB CONC 30.5 g/dl (33.0-37.0); MONO # 0.5 10*3/uL (0.1-1.0); MONO % 10.2 % (3.0-9.0); NEUT # 2.6 10*3/uL (2.3-7.9); NEUT % 51.5 % (47.0-73.0); PLATELET COUNT AUTOMATED 217 10*3/uL (130-400); RED BLOOD COUNT 5.41 10*6/uL (4.10-5.10); RED CELL DISTRI WIDTH 18.9 % (0-14.5)
[2023-08-13 19:46] LABS: ACT PARTIAL THROMBO TIME 32.6 SECONDS (20.0-32.1)
[2023-08-13 19:58] LABS: ALKALINE PHOSPHATASE 73 U/L (46-116); BUN 19 mg/dl (9-23); CHLORIDE 107 mmol/L (98-107); LIPASE 31 U/L (12-53); POTASSIUM 3.3 mmol/L (3.4-5.1); SGPT/ALT 22 U/L (5-49); TOTAL PROTEIN 6.3 gm/dL (6.0-8.0)
[2023-08-13 20:47] LABS: BILIRUBIN Negative (Negative); BLOOD Negative (Negative); CLARITY Clear (Clear); COLOR Yellow (Yellow); GLUCOSE Negative (Negative); KETONE Negative (Negative); LEUKO ESTERASE 1+ (Negative); NITRITE Positive (Negative); SPECIFIC GRAVITY >= 1.030 (1.001-1.030); UROBILINOGEN 0.2 E.U./dl (0.0-1.0)
[2023-08-13 20:54] LABS: BACTERIA 4+; WBC 16-20 wbc/hpf (0-5)
[2023-08-13] MEDS ORDERED: MIRALAX POWDER17 G1 PO (21:39)
[2023-08-13] MEDS ORDERED: CIPRO500 MG PO (21:40)
[2023-08-13] MEDS ORDERED: MAGNESIUM CITRATE 296 ML BOT PO ONE (21:40)
[2023-08-13] MEDS ORDERED: POTASSIUM CHLORIDE 20 MEQ TAB PO ONE (21:50)
== END 2023-08-13 22:10 | disposition home or self-care (01) ==
LOC: ED 18:31
PROVIDERS: Internal Medicine
DX: K59.00 Constipation, unspecified (principal); E87.6 Hypokalemia; N39.0 Urinary tract infection, site not specified; R11.2 Nausea with vomiting, unspecified; I10 Essential (primary) hypertension; J44.9 Chronic obstructive pulmonary disease, unspecified; E11.9 Type 2 diabetes mellitus without complications; K21.9 Gastro-esophageal reflux disease without esophagitis; E03.9 Hypothyroidism, unspecified; F41.9 Anxiety disorder, unspecified; Z88.0 Allergy status to penicillin; Z90.49 Acquired absence of other specified parts of digestive tract; Z98.890 Other specified postprocedural states; Z87.891 Personal history of nicotine dependence

== ENCOUNTER → 2023-09-02 | Outpatient (CLI) | payer MEDICARE, OTHER ==
[~2023-09-02] MED LIST changes: +CIPRO500 MG PO; +MIRALAX POWDER17 G1 PO
== END | disposition home or self-care (01) ==
LOC: CARD 02:20
PROVIDERS: ATTEND Physician Assistant
DX: I08.0 Rheumatic disorders of both mitral and aortic valves (principal); R01.1 Cardiac murmur, unspecified

== ENCOUNTER 2023-11-26 15:37 | Emergency (ER) | payer MEDICARE, OTHER ==
[~2023-11-26] VITALS: Ht 154.9 cm; Wt 61.2 kg
== END 2023-11-26 18:04 | disposition left against medical advice (07) ==
LOC: ED 15:37
DX: H53.8 Other visual disturbances (principal); R53.1 Weakness; G43.909 Migraine, unspecified, not intractable, without status migrainosus; E87.6 Hypokalemia; E83.42 Hypomagnesemia; F41.9 Anxiety disorder, unspecified; M19.90 Unspecified osteoarthritis, unspecified site; E03.9 Hypothyroidism, unspecified; I10 Essential (primary) hypertension; J44.9 Chronic obstructive pulmonary disease, unspecified; E11.9 Type 2 diabetes mellitus without complications; K21.9 Gastro-esophageal reflux disease without esophagitis; Z88.0 Allergy status to penicillin; Z90.49 Acquired absence of other specified parts of digestive tract; Z98.890 Other specified postprocedural states; Z87.891 Personal history of nicotine dependence; Z53.29 Procedure and treatment not carried out because of patient's decision for other reasons